=== PATIENT | male | born 2000 | race Caucasian/White ===

== ENCOUNTER 2025-03-17 02:44 | Emergency (ER) | payer SELFPAY ==
[2025-03-17] MEDS: Ondansetron 4 MG/2 ML SDV IVPUSH STA (03:07)
[2025-03-17] MEDS: Sodium Chloride 0.9% 1,000 ML IV ONE (03:09)
[2025-03-17] MEDS: Lidocaine 1% 10 ML MDV INJECT ONE (03:09)
[2025-03-17] MEDS: Cephalexin 500 MG Cap PO ONE (05:30)
[2025-03-17] MEDS: Diphtheria,Pertussis(Acell),Tetanus Vaccine 0.5 ML Syringe IM ONE (05:31)
== END 2025-03-17 05:40 | disposition home or self-care (01) ==
LOC: MW.ED 02:44
DX: S01.311A Laceration without foreign body of right ear, initial encounter (principal); Z23 Encounter for immunization; W22.8XXA Striking against or struck by other objects, initial encounter
CPT/HCPCS: 12002; 12013; 90471; 90715; 96374; 99283; A9270; J2003; J2405; J7030; 12011; 99284